=== PATIENT | female | born 1980 | race Caucasian/White ===

== ENCOUNTER → 2016-10-04 | Outpatient (CLI) | payer OTHER ==
--- NOTE | 2016-10-04 18:20 | US ---
Dear Dr. Rucker, Thank you for sending your patient, Belkis Zendejas, to us for an US and consultation to assess an atomy. As you know, the patient is a 36 y.o. G1, P0 at 18 weeks and 5 days with an EDC of 03/02/17 base d on LMP. Her is complicated by AMA. Her past medical and surgical histories are otherwise unremarkable. Genetic Screening: NIPT and AFP reassuring The patient denies any uterine contractions, vaginal bleeding, or loss of fluid. Today, she is withou t complaints. US FINDINGS: Number of fetuses: 1 Placental location: Anterior, No previa Placental Cord Insertion: Central presentation: Breech Cervix: 4.4 cm, transabdominally MVP: 6.3 cm The adnexa were evaluated. No pathology was seen. Right ovary: Normal Left ovary: Suboptimal heart rate: 143 bpm Measurements: Biparietal diameter: 45 mm, 19 weeks 5 days Head circumference: 167 mm, 19 weeks 3 days Abdominal circumference: 156 mm, 20 weeks 6 days Femur length: 31 mm, 19 weeks 5 days Humerus length: 30 mm, 19 weeks 5 days Transcerebellar diameter: 20 mm, 19 weeks 2 days Average ultrasound age: 20 weeks 0 days Estimated weight: 337 g weight percentile: 98% ANATOMY Supratentorial brain: Normal Cerebral lateral ventricle: 7 mm Posterior fossa: Normal Cisterna magna: 5 mm Nuchal fold: 3.8 mm Lip: Normal Profile: Normal Alveolar Ridge: Appears intact Spine: -- Cervical: Normal -- Thoracic: Normal -- Lumbar: Normal -- Sacral: Normal Heart: -- 4 Chamber: Normal -- Intraventricular septum: Appears intact by Color and Spectral US -- Right Outflow Tract: Normal -- Left Outflow Tract: Normal -- 3 Vessel View: Normal -- Aortic Arch: Normal -- Ductal Arch: Normal Diaphragm: Appears intact Stomach: Normal Abdominal Umbilical Cord Insertion: Normal Right kidney: Normal Left kidney: Normal Bladder: Normal Number of cord vessels: 3 Upper extremities: -- Right Arm: Normal -- Right Hand: Normal -- Left Arm: Normal -- Left Hand: Normal Lower extremities: -- Right Leg: Normal -- Right Foot: Normal, no club foot -- Left Leg: Normal -- Left Foot: Limited, no obvious club foot IMPRESSION: 1. Anatomy: The fetus measures appropriate for gestational age, measuring a normal weight and percen tile. Visualization of the fetus today reveals no overt structural anomalies. There is evidence of no rmal amniotic fluid, and movement was seen during the examination. - Further US assessment is left to your clinical discretion 2. Genetic Screening: This patient has had reassuring NIPT results this . Today, no markers of aneuploidy were seen. While her screening and US results are reassuring, we reviewed that fe leyla aneuploidy can only be definitively excluded with diagnostic testing via amniocentesis. After thi s discussion, the patient does not wish to proceed with invasive testing at this time. Thank you again for sending this patient to see us today. Approximately 12 minutes of a total visit t isaiah of 15 minutes were spent with this patient today in direct face to face counseling regarding radha gimenez's US findings and the above recommendations. Please feel free to contact me with any questions at . Mary Ann Kraft MD Maternal- Medicine
--- NOTE | 2016-10-05 09:20 | US ---
Complete Obstetric Ultrasound History: 36-year-old with estimated gestational age of 18 weeks 5 days and EDC of March 02, 2017. Comparison: None available. Findings: Number: 1 Presentation: Breech Placental location: Anterior. No previa. Cervix: Closed, measuring 4.4 cm transabdominally Maximum vertical pocket: 6.3 cm There is a 4.9 x 6.0 x 7.2 cm exophytic subserosal right uterine fibroid. The right ovary is normal. The left ovary is not visible. Biometry: Biparietal diameter: 45 mm 19 weeks, 5 days Head circumference: 167 mm 19 weeks, 3 days Abdominal circumference: 156 mm 20 weeks, 6 days Femur length: 31 mm 19 weeks, 5 days Humerus length: 30 mm 19 weeks, 5 days Transcerebellar diameter: 20 mm 19 weeks, 2 days Average ultrasound age: 20 weeks, 0 days EDC based on today's average ultrasound age: February 21, 2017 Estimated weight is 337 gms +/- 49 gms. The estimated weight percentile is 98% based on p revious dating. ANATOMY SURVEY: Supratentorial brain: Normal Posterior fossa: Normal Spine: Normal Nose and lips: Normal Heart: Four chamber heart with heart rate of 143 . The outflow tracts are normal. Stomach: Normal Umbilical cord insertion: Normal Kidneys: Normal Bladder: Normal Number of cord vessels: Three Upper extremities: Normal Lower extremities: Suboptimal visualization of the foot with no overt abnormality Impression: 1. Living single intrauterine with size concordant with dates. EFW is 98%. This could be c onstitutional but is indeterminate. 2. Unremarkable anatomy. Please see separate dictation for consultation performed by Mary Ann Kraft MD, the [facility].
== END ==
LOC: FIMAGING 07:57
PROVIDERS: ATTEND Obstetrics & Gynecology
DX: O09.512 Supervision of elderly primigravida, second trimester (principal); Z3A.18 18 weeks gestation of pregnancy

== ENCOUNTER → 2017-01-12 | Outpatient (CLI) | payer OTHER | LOC: FIMAGING 12:39 | PROVIDERS: ATTEND Obstetrics & Gynecology | DX: O36.5930 Maternal care for other known or suspected poor fetal growth, third trimester, not applicable or unspecified (principal); Z3A.33 33 weeks gestation of pregnancy ==

== ENCOUNTER → 2017-02-06 | Outpatient (CLI) | payer OTHER | LOC: FIMAGING 14:34 | PROVIDERS: ATTEND Obstetrics & Gynecology | DX: O36.63X0 Maternal care for excessive fetal growth, third trimester, not applicable or unspecified (principal); Z3A.38 38 weeks gestation of pregnancy ==

== ENCOUNTER 2017-02-08 12:40 | Inpatient (IN) | payer OTHER ==
[2017-02-08] MEDS ORDERED: LR 500 ML IV PRN (13:21)
[2017-02-08] MEDS ORDERED: OLIVE OIL 118 ML BTL MISC PRN (13:21)
[2017-02-08] MEDS ORDERED: LIDOCAINE 1% 30 ML SDV SC PRN (13:21)
[2017-02-08] MEDS ORDERED: TERBUTALINE SULFATE 1 MG/ML VIAL IV PRN (13:21)
[2017-02-08] MEDS ORDERED: EPSOM SALT 454 GM TP PRN (13:21)
[2017-02-08] MEDS ORDERED: LR 1,000 ML IV PRN (13:21)
[2017-02-08] MEDS ORDERED: OXYTOCIN/RINGERS LACTATE 1,000 ML IV PRN (13:21)
[2017-02-08] MEDS ORDERED: OXYTOCIN/RINGERS LACTATE 500 ML IV SCH (13:30)
[2017-02-08 14:15] LABS: ABSOLUTE IMMATURE GRANULOCYTES 0.11 10^3/uL (0.00-0.10); ADD DIFF? NO; ADD MORPH? NO; ADD SCAN? NO; ATYPICAL LYMPHOCYTE FLAG 20 (0-99); FRAGMENT RBC FLAG 0 (0-99); HEMATOCRIT 36.2 % (38.0-47.0); HEMOGLOBIN 12.2 g/dL (12.6-16.3); LEFT SHIFT FLG 0 (0-99); LIPEMIA HEMOLYSIS FLAG 80 (0-99); MEAN CELL HEMOGLOBIN 29.8 pg (27.9-34.1); MEAN CELL HEMOGLOBIN CONCENTR. 33.7 g/dL (32.4-36.7); MEAN CELL VOLUME 88.5 fL (81.5-99.8); MEAN PLATELET VOLUME 13.4 fL (8.7-11.7); PLATELET CLUMPS FLAG 0 (0-99); PLATELET COUNT 182 10^3/uL (150-400); RED BLOOD CELL COUNT 4.09 10^6/uL (4.18-5.33); RED CELL DISTRIBUTION WIDTH 13.1 % (11.5-15.2)
[2017-02-08] MEDS ORDERED: OLIVE OIL 118 ML BTL ONE (14:21)
[2017-02-08] MEDS ORDERED: LIDOCAINE 1% 30 ML SDV ONE (14:21)
[2017-02-08] MEDS ORDERED: MISOPROSTOL 200 MCG TAB ONE (14:22)
[2017-02-08] MEDS ORDERED: TERBUTALINE SULFATE 1 MG/ML VIAL ONE (14:22)
[2017-02-08] MEDS ORDERED: OXYTOCIN 10 UNIT/ML VIAL ONE (14:22)
--- NOTE | 2017-02-08 14:26 | GHP ---
[f rep st] HISTORY AND PHYSICAL DATE OF ADMISSION: 02/08/2017 CHIEF COMPLAINT: Leakage of fluid. HISTORY OF PRESENT ILLNESS: The patient is a 36-year-old, G1, P0, at 36 weeks 6 days based on last menstrual period and 9 week ultrasound, who presents with leaking fluid since 0600. She states that she woke up, and she was wet. She then put on a pad and continued to gush large amounts of clear fluid, so much so that she even needed to place a diaper. She initially was not yanci, however she recently started having some mild nonpainful contractions about every 6 minutes. She has felt some decreased movement since the bag of water broke. She denies any vaginal bleeding. Her has been complicated by advanced maternal age, and she has had normal cell free DNA and anatomy ultrasound. Also, recently she began complaining of shortness of breath at bedtime and has been evaluated by cardiology, and had a normal electrocardiogram. She was also seen by pulmonology and was scheduled to have an evaluation for sleep apnea today. Her has also been complicated by macrosomia, with normal Glucola screening x2. On recent ultrasound 2 days ago, her fetus was measuring 4026 g, in the 98th percentile, and was noted to be vertex with normal fluid. She has gained 40 pounds this . OB LABS: Notable for blood type O positive, antibody screen negative, Pap smear negative. Varicella nonimmune, rubella immune, RPR nonreactive. Urine culture negative. Hep B surface antigen negative, HIV negative, gonorrhea and chlamydia negative. She did have an elevated 1 hour Glucola in the 3rd trimester, which was then followed by a normal 3 hour Glucola. GBS negative. PAST MEDICAL HISTORY: Migraines. PAST SURGICAL HISTORY: None. SOCIAL HISTORY: to Julio. Denies alcohol, drugs or tobacco use. FAMILY HISTORY: Mother with a history of uterine cancer. MEDICATIONS: vitamin, calcium, loratadine 10 mg p.r.n. REVIEW OF SYSTEMS: Negative, except as stated in HPI. OBJECTIVE: VITAL SIGNS: Initial blood pressure 143/85, pulse 80, temp 37.0, repeat blood pressure 128/84. GENERAL: Alert, awake in no acute distress. Respirations nonlabored. CARDIOVASCULAR: Regular rate and rhythm. ABDOMEN: Abdomen is gravid, soft, nontender, consistent with term gestation. EXTREMITIES : No edema. VAGINAL: Sterile vaginal exam, cervix posterior, 2 cm dilated, 50 % effaced, -3 station. Vertex presentation. Noted to have leakage of clear fluid on exam, consistent with rupture. heart rate tracing baseline 130 beats per minute. Moderate variability, positive accelerations, no decelerations. Tocometer shows intermittent contractions. Laboratories are pending. ASSESSMENT AND PLAN: The patient is a healthy 36-year-old, G1, P0, at 36 weeks 6 days by last menstrual period and 9 week ultrasound, who presents with premature rupture of membranes. She is GBS negative. She is not currently in active labor. status is currently reassuring. As the bag of water is broken, to minimize the risk of chorioamnionitis, I recommend we proceed with augmentation of labor with Pitocin. We discussed the risks and benefits, and she and her agree with this plan. We will continue with continuous monitoring. Reviewed the risks of cephalopelvic dystocia, given the large size of her fetus. However, based on ultrasound yesterday, would not recommend delivery at this time and recommend to proceed with trial of labor, which is also her preference. As the bag of water is broken and she has passed 34 weeks, I do not recommend delaying delivery for administration of corticosteroids. We discussed what to expect at time of delivery for her gestational age . /[id number]/MODL MTDD
[2017-02-08 15:34] LABS: ALANINE AMINOTRANSFERASE 32 IU/L (9-52); ASPARTATE AMINOTRANSFERASE 37 IU/L (14-46); BILIRUBIN,TOTAL 0.6 mg/dL (0.1-1.4); BILIRUBIN-CONJUGATED 0.4 mg/dL (0.0-0.5); BILIRUBIN-UNCONJUGATED 0.2 mg/dL (0.0-1.1); CREATININE 0.8 mg/dL (0.6-1.0); GLOMERULAR FILTRATION RATE > 60; LACTATE DEHYDROGENASE 706 IU/L (313-618); URIC ACID 6.4 mg/dL (2.5-6.8)
--- NOTE | 2017-02-08 17:41 | OBPROG ---
OBG Progress Note Assessment/Plan: Assessment: 36w6d, PPROM status reassuring GBS neg Plan: Continue pitocin SVE when more uncomfortable Will let peds know about slightly dilated kidney on recent growth US 02/08/17 17:40 Subjective: Starting to feel contractions a little more. Ongoing leaking Objective: 02/08/17 14:00 02/08/17 14:30 Patient ABO/Rh O POSITIVE 02/08/17 14:00 Uric Acid 6.4 mg/dL (2.5-6.8) 02/08/17 14:30 Total Bilirubin 0.6 mg/dL (0.1-1.4) 02/08/17 14:30 Conjugated Bilirubin 0.4 mg/dL (0.0-0.5) 02/08/17 14:30 Unconjugated Bilirubin 0.2 mg/dL (0.0-1.1) 02/08/17 14:30 AST 37 IU/L (14-46) 02/08/17 14:30 ALT 32 IU/L (9-52) 02/08/17 14:30 Lactate Dehydrogenase 706 IU/L (313-618) H 02/08/17 14:30 Gen: NAD Pelvic deferred Current Contraction Pattern: Irregular FHR (bpm): 130 FHR Pattern Variability: Moderate FHR Category: 1 Membranes: SROM Amniotic Fluid Color: Clear ICD10 Worksheet Patient Problems: Problems Problem Status Onset premature rupture of membranes (PPROM) with unknown onset of labor Acute - ICD10 Problem Qualifiers (1) premature rupture of membranes (PPROM) with unknown onset of labor
--- NOTE | 2017-02-08 20:24 | OBPROG ---
OBG Progress Note Assessment/Plan: Assessment: 36w6d, PPROM status reassuring GBS neg Plan: Continue pitocin Pain management as requested by pt 02/08/17 17:40 02/08/17 20:23 Subjective: Plan of care reviewed with YUKI Correa and FHR tracing reviewed. Ctx every 3-4 min , mild to mod. Pt just starting to get slightly more uncomfortable, getting in tub. SVE /-2 per RN Objective: 02/08/17 14:00 02/08/17 14:30 Patient ABO/Rh O POSITIVE 02/08/17 14:00 Uric Acid 6.4 mg/dL (2.5-6.8) 02/08/17 14:30 Total Bilirubin 0.6 mg/dL (0.1-1.4) 02/08/17 14:30 Conjugated Bilirubin 0.4 mg/dL (0.0-0.5) 02/08/17 14:30 Unconjugated Bilirubin 0.2 mg/dL (0.0-1.1) 02/08/17 14:30 AST 37 IU/L (14-46) 02/08/17 14:30 ALT 32 IU/L (9-52) 02/08/17 14:30 Lactate Dehydrogenase 706 IU/L (313-618) H 02/08/17 14:30 ICD10 Worksheet Patient Problems: Problems Problem Status Onset premature rupture of membranes (PPROM) with unknown onset of labor Acute - ICD10 Problem Qualifiers (1) premature rupture of membranes (PPROM) with unknown onset of labor
[2017-02-08] MEDS ORDERED: fentaNYL 2MCG/ML/BUP 0.1% RTU 100 ML BAG EP ONE ×2 (22:03)
[2017-02-08] MEDS ORDERED: METOCLOPRAMIDE 10 MG/2 ML VIAL IVP PRN (22:37)
[2017-02-08] MEDS ORDERED: NALOXONE HCL 0.4 MG/ML INJ IVP PRN (22:37)
[2017-02-08] MEDS ORDERED: PHENYLEPHRINE HCL 100 MCG/ML SYR IVP PRN (22:37)
[2017-02-08] MEDS ORDERED: fentaNYL 2MCG/ML/BUP 0.1% RTU 100 ML EP SCH (23:00)
[2017-02-08] MEDS ORDERED: LR 500 ML IV SCH (23:00)
--- NOTE | 2017-02-08 23:49 | OBPROG ---
OBG Progress Note Assessment/Plan: Assessment: 36w6d, PPROM Intermittent late decels after epidural--position change, fluids O2. Will decrease pitocin if recurrent or do not resolve with conservative measures. Overall reassuring with mod beena and accels. GBS neg Plan: Continue AOL Subjective: Comfortable with epidural per RN. Now 4-5 cm per RN. Pit at 22 mu/min Objective: 02/08/17 14:00 02/08/17 14:30 Patient ABO/Rh O POSITIVE 02/08/17 14:00 Uric Acid 6.4 mg/dL (2.5-6.8) 02/08/17 14:30 Total Bilirubin 0.6 mg/dL (0.1-1.4) 02/08/17 14:30 Conjugated Bilirubin 0.4 mg/dL (0.0-0.5) 02/08/17 14:30 Unconjugated Bilirubin 0.2 mg/dL (0.0-1.1) 02/08/17 14:30 AST 37 IU/L (14-46) 02/08/17 14:30 ALT 32 IU/L (9-52) 02/08/17 14:30 Lactate Dehydrogenase 706 IU/L (313-618) H 02/08/17 14:30 FHR (bpm): 135 FHR Pattern Variability: Moderate FHR Category: 2 Membranes: SROM ICD10 Worksheet Patient Problems: Problems Problem Status Onset premature rupture of membranes (PPROM) with unknown onset of labor Acute - ICD10 Problem Qualifiers (1) premature rupture of membranes (PPROM) with unknown onset of labor
[2017-02-09] MEDS ORDERED: LIDOCAINE 1% 30 ML SDV ONE (02:24)
--- NOTE | 2017-02-09 03:01 | OBPROG ---
OBG Progress Note Assessment/Plan: Assessment: 37w0d, PPROM Late decels improved after decreasing pitocin, however, now pt now just had spont 4 min decel to 90s, resolved with position change. SVE 9 cm dilated, baby still high, in OP presentation. Pit turned off during decel, expect was due to sudden dilation GBS neg No signs of chorioamnionitis (no /maternal tachy or temp) Plan: Restart pitocin at half prior amount (6 mu/min) Peanut ball/position changes for OP presentation 02/09/17 03:01 02/09/17 03:01 02/09/17 03:02 Subjective: comfortable Objective: 02/08/17 14:00 02/08/17 14:30 Patient ABO/Rh O POSITIVE 02/08/17 14:00 Uric Acid 6.4 mg/dL (2.5-6.8) 02/08/17 14:30 Total Bilirubin 0.6 mg/dL (0.1-1.4) 02/08/17 14:30 Conjugated Bilirubin 0.4 mg/dL (0.0-0.5) 02/08/17 14:30 Unconjugated Bilirubin 0.2 mg/dL (0.0-1.1) 02/08/17 14:30 AST 37 IU/L (14-46) 02/08/17 14:30 ALT 32 IU/L (9-52) 02/08/17 14:30 Lactate Dehydrogenase 706 IU/L (313-618) H 02/08/17 14:30 Resting, NAD - SVE Dilation (cm): 9 Effacement (%): 90 Station: -1 Current Contraction Pattern: Regular FHR (bpm): 135 FHR Pattern Variability: Moderate FHR Category: 2 Membranes: SROM Amniotic Fluid Color: Clear ICD10 Worksheet Patient Problems: Problems Problem Status Onset premature rupture of membranes (PPROM) with unknown onset of labor Acute - ICD10 Problem Qualifiers (1) premature rupture of membranes (PPROM) with unknown onset of labor
[2017-02-09] MEDS: ONDANSETRON 4 MG/2 ML VIAL IVP PRN ×2 (03:15→15:02)
--- NOTE | 2017-02-09 07:03 | OBPROG ---
OBG Progress Note Assessment/Plan: Assessment: 37w0d, PPROM yesterday at 36w6d GBS neg No signs of chorioamnionitis (no /maternal tachy or temp) Fully dilated status reassuring ROP presentation. Consider rotation if baby doesn't rotate spontaneously while pushing or she is not making progress pushing Plan: Start pushing 02/09/17 07:02 Subjective: Comfortable. Slight pressure, can just sense contractions Objective: 02/08/17 14:00 02/08/17 14:30 Patient ABO/Rh O POSITIVE 02/08/17 14:00 Uric Acid 6.4 mg/dL (2.5-6.8) 02/08/17 14:30 Total Bilirubin 0.6 mg/dL (0.1-1.4) 02/08/17 14:30 Conjugated Bilirubin 0.4 mg/dL (0.0-0.5) 02/08/17 14:30 Unconjugated Bilirubin 0.2 mg/dL (0.0-1.1) 02/08/17 14:30 AST 37 IU/L (14-46) 02/08/17 14:30 ALT 32 IU/L (9-52) 02/08/17 14:30 Lactate Dehydrogenase 706 IU/L (313-618) H 02/08/17 14:30 - SVE Dilation (cm): 10 Effacement (%): 100 Station: -1 Current Contraction Pattern: Regular FHR (bpm): 130 FHR Pattern Variability: Moderate FHR Category: 1 ICD10 Worksheet Patient Problems: Problems Problem Status Onset premature rupture of membranes (PPROM) with unknown onset of labor Acute - ICD10 Problem Qualifiers (1) premature rupture of membranes (PPROM) with unknown onset of labor
--- NOTE | 2017-02-09 08:02 | OBPROG ---
OBG Progress Note Assessment/Plan: Assessment: 37w0d, PPROM yesterday at 36w6d GBS neg No signs of chorioamnionitis (no /maternal tachy or temp) Fully dilated status reassuring ROP presentation. Pushing x 1.25 hours with minimal descent: pt not pushing very effectively and feels like this is more the issue vs CPD or position Plan: Pt status discussed and signed out care to Dr. Rucker Will consider turning down epidural slightly and trial labor down x 1 hour. Plan to discuss this recommendation with Dr. Craig 02/09/17 07:02 02/09/17 08:00 Subjective: Pushing. Can feel onset of contractions, but feels like pelvic area is still very numb Objective: 02/08/17 14:00 02/08/17 14:30 Patient ABO/Rh O POSITIVE 02/08/17 14:00 Uric Acid 6.4 mg/dL (2.5-6.8) 02/08/17 14:30 Total Bilirubin 0.6 mg/dL (0.1-1.4) 02/08/17 14:30 Conjugated Bilirubin 0.4 mg/dL (0.0-0.5) 02/08/17 14:30 Unconjugated Bilirubin 0.2 mg/dL (0.0-1.1) 02/08/17 14:30 AST 37 IU/L (14-46) 02/08/17 14:30 ALT 32 IU/L (9-52) 02/08/17 14:30 Lactate Dehydrogenase 706 IU/L (313-618) H 02/08/17 14:30 - SVE Dilation (cm): 10 Effacement (%): 100 Station: +1 Current Contraction Pattern: Regular FHR (bpm): 140 FHR Pattern Variability: Moderate FHR Category: 1 ICD10 Worksheet Patient Problems: Problems Problem Status Onset premature rupture of membranes (PPROM) with unknown onset of labor Acute - ICD10 Problem Qualifiers (1) premature rupture of membranes (PPROM) with unknown onset of labor
--- NOTE | 2017-02-09 08:37 | OBPROG ---
OBG Progress Note Assessment/Plan: Assessment: 36 y/o at 37+0 weeks EGA admitted for PROM now on pitocin - Plan: 1) Labor: Pt pushed for an hour, but she had a dense KEI and did not make much progress. Now, she reports feeling much more with her contractions, and she is pushing with good efforts. With pushing, I see movement of the head. Discussed how the baby is OP, slightly asynclitic. I tried to manually rotate the baby not to be asynclitic, and she is pushing with good efforts. Will reevaluate hourly. 2) status reassuring over all 3) Pain: well controlled w/ KEI 4) GBS negative 02/09/17 08:44 Subjective: Pt pushing. She reports feeling more pressure with pushing now. Objective: 02/08/17 14:00 02/08/17 14:30 Patient ABO/Rh O POSITIVE 02/08/17 14:00 Uric Acid 6.4 mg/dL (2.5-6.8) 02/08/17 14:30 Total Bilirubin 0.6 mg/dL (0.1-1.4) 02/08/17 14:30 Conjugated Bilirubin 0.4 mg/dL (0.0-0.5) 02/08/17 14:30 Unconjugated Bilirubin 0.2 mg/dL (0.0-1.1) 02/08/17 14:30 AST 37 IU/L (14-46) 02/08/17 14:30 ALT 32 IU/L (9-52) 02/08/17 14:30 Lactate Dehydrogenase 706 IU/L (313-618) H 02/08/17 14:30 - SVE Dilation (cm): 10 Effacement (%): 100 Station: +1 Current Contraction Pattern: Regular FHR (bpm): 140 FHR Pattern Variability: Moderate FHR Category: 2 (occasional variable just started with pushing, good accels present) Amniotic Fluid Color: Clear ICD10 Worksheet Patient Problems: Problems Problem Status Onset premature rupture of membranes (PPROM) with unknown onset of labor Acute
--- NOTE | 2017-02-09 09:12 | OBPROG ---
OBG Progress Note Assessment/Plan: Assessment: 36 y/o at 37+0 weeks EGA admitted for PROM with arrest of descent - Plan: 1) Labor: Pt has been pushing for 2.5 hrs, no descent noted at all despite improved maternal pushing efforts and a successful internal rotation of the head to OA which quickly returned on it's own to OP after future pushing with return of the asyclitism as well. I discussed that this suggests CPD with a possible nuchal cord or other cause holding the baby in this position. Discussed she can keep pushing if desired, but I am concerned and offered a primary C/S at this time. She agrees to proceed. All r/b/i/a reviewed to include risks of infection, bleeding, damage to surrounding structures and organs, blood transfusion and hysterectomy. Consents signed. All questions answered. 2) status reassuring over all 3) Pain: well controlled w/ KEI 4) GBS negative 02/09/17 17:45 Subjective: Pt tired. Objective: 02/08/17 14:00 02/08/17 14:30 Patient ABO/Rh O POSITIVE 02/08/17 14:00 Uric Acid 6.4 mg/dL (2.5-6.8) 02/08/17 14:30 Total Bilirubin 0.6 mg/dL (0.1-1.4) 02/08/17 14:30 Conjugated Bilirubin 0.4 mg/dL (0.0-0.5) 02/08/17 14:30 Unconjugated Bilirubin 0.2 mg/dL (0.0-1.1) 02/08/17 14:30 AST 37 IU/L (14-46) 02/08/17 14:30 ALT 32 IU/L (9-52) 02/08/17 14:30 Lactate Dehydrogenase 706 IU/L (313-618) H 02/08/17 14:30 - SVE Dilation (cm): 10 Effacement (%): 100 Station: +1 Current Contraction Pattern: Regular FHR (bpm): 140 FHR Pattern Variability: Moderate FHR Category: 1 ICD10 Worksheet Patient Problems: Problems Problem Status Onset premature rupture of membranes (PPROM) with unknown onset of labor Acute
[2017-02-09] MEDS ORDERED: ceFAZolin 2 GM/DEXTROSE 100 ML IV ONE (09:20)
[2017-02-09] MEDS ORDERED: LR 500 ML IV ONE (09:20)
[2017-02-09] MEDS ORDERED: CITRIC ACID/SODIUM CITRATE 30 ML UDCUP PO ONE (09:20)
[2017-02-09] MEDS ORDERED: LR 1,000 ML IV SCH (09:30)
[2017-02-09] MEDS ORDERED: fentaNYL 100 MCG/2 ML INJ ONE (09:39)
[2017-02-09] MEDS ORDERED: LIDO/EPI 2% **for epidural** 20 ML SDV ONE (09:40)
[2017-02-09] MEDS ORDERED: SIMETHICONE 80 MG TAB CHEW PO PRN (10:04)
[2017-02-09] MEDS ORDERED: ACETAMINOPHEN 325 MG TAB PO PRN (10:04)
[2017-02-09] MEDS ORDERED: morphINE PF 5 MG/10 ML INJ ONE (10:17)
[2017-02-09] MEDS ORDERED: OXYTOCIN 100 UNITS/10 ML VIAL ONE (10:18)
[2017-02-09] MEDS ORDERED: DEXAMETHASONE 4 MG/ML VIAL ONE ×2 (10:18)
[2017-02-09] MEDS ORDERED: ONDANSETRON 4 MG/2 ML VIAL ONE ×2 (10:22)
[2017-02-09] MEDS ORDERED: KETOROLAC 30 MG/1 ML SDV ONE (11:10)
[2017-02-09] MEDS: KETOROLAC 30 MG/1 ML SDV IVP PRN ×3 (11:14→23:22)
[2017-02-09] MEDS ORDERED: MEPERIDINE 25 MG/ML SYR IVP PRN (12:11)
--- NOTE | 2017-02-09 12:15 | POSTANESTH ---
Post Anesthetic Evaluation Cardiovascular Status: Normal, Stable Respiratory Status: Normal, Stable, Similar to Pre-op Cond. Level of Consciousness/Mental Status: Can Participate in Eval, Alert and Oriented (Epidural dosed for C Section, BP treated, to OR, comfortable for surgery, to PACU, no pain or nausea.) Pain Control: Adequate, Prn Tx Ordered Nausea/Vomiting Control: Adequate, Prn Tx Ordered Complications Possibly Related to Anesthesia: None Noted
[2017-02-09] MEDS ORDERED: SCOPOLAMINE HYDROBROMIDE 1.5 MG PATCH TD ONE ×2 (15:55→16:02)
--- NOTE | 2017-02-09 17:49 | OBPROC ---
- Delivery Pre-op Diagnoses: 1) IUP at 37+0 weeks, 2) Arrest of descent, 3) Malposition Post-op Diagnoses: bruce Procedure: Primary, Low Transverse Surgeon: Nano Rucker [employer] Teacher: Adelia Montenegro Anesthesiologist: Amish Craig Anesthesia: Epidural Complications: None Findings: Baby in ROP position, asynclitic w/ nuchal cord IV Fluid (ml): 2,000 EBL: 800 Drains: Other (Specify) (borrego) - Info A Delivery Date: 02/09/17 Delivery Time: 10:18 Sex of Infant: Male [place] Weight (gm): 3688 g Score (1 Min): 9 Score (5 Min): 9
[2017-02-10] MEDS: KETOROLAC 30 MG/1 ML SDV IVP PRN (05:37)
[2017-02-10 06:54] LABS: ABSOLUTE IMMATURE GRANULOCYTES 0.17 10^3/uL (0.00-0.10); ADD DIFF? NO; ADD MORPH? NO; ADD SCAN? NO; ATYPICAL LYMPHOCYTE FLAG 0 (0-99); FRAGMENT RBC FLAG 0 (0-99); HEMATOCRIT 27.9 % (38.0-47.0); HEMOGLOBIN 9.5 g/dL (12.6-16.3); LEFT SHIFT FLG 20 (0-99); LIPEMIA HEMOLYSIS FLAG 90 (0-99); MEAN CELL HEMOGLOBIN 30.2 pg (27.9-34.1); MEAN CELL HEMOGLOBIN CONCENTR. 34.1 g/dL (32.4-36.7); MEAN CELL VOLUME 88.6 fL (81.5-99.8); MEAN PLATELET VOLUME 13.5 fL (8.7-11.7); PLATELET CLUMPS FLAG 20 (0-99); PLATELET COUNT 135 10^3/uL (150-400); RED BLOOD CELL COUNT 3.15 10^6/uL (4.18-5.33); RED CELL DISTRIBUTION WIDTH 13.3 % (11.5-15.2)
[2017-02-10 07:01] LABS: ALANINE AMINOTRANSFERASE 29 IU/L (9-52); ALBUMIN 2.1 g/dL (3.5-5.0); ALKALINE PHOSPHATASE 99 IU/L (38-126); ANION GAP 3 mEq/L (8-16); ASPARTATE AMINOTRANSFERASE 29 IU/L (14-46); BILIRUBIN,TOTAL 0.5 mg/dL (0.1-1.4); CALCIUM 7.8 mg/dL (8.5-10.4); CARBON DIOXIDE 22 mEq/l (22-31); CHLORIDE 103 mEq/L (97-110); CREATININE 1.1 mg/dL (0.6-1.0); GLOMERULAR FILTRATION RATE 57; GLUCOSE 93 mg/dL (70-100); POTASSIUM 4.1 mEq/L (3.5-5.2); SODIUM 128 mEq/L (134-144); TOTAL PROTEIN 4.5 g/dL (6.3-8.2)
--- NOTE | 2017-02-10 07:48 | SOAPPROG ---
SOAP Progress Note Assessment/Plan: Assessment: 36 y.o. female s/p primary C/S POD #1. Recovering well with good pain control. . Plan: Routine / postop care. consult. Discontinue IV hep lock, bandage, borrego and encourage ambulation 02/10/17 07:43 Subjective: Reports feeling well with good pain control. Eating and drinking well without nausea or vomiting. Will encourage ambulation. with assistance. Incision CDI. Good support with appropriate mood. Objective: Vital Signs Temp Pulse Resp BP Pulse Ox 36.6 C 75 16 101/62 92 02/10/17 06:00 02/10/17 06:00 02/10/17 06:00 02/10/17 06:00 02/10/17 06:00 Laboratory Results 02/10/17 06:15 02/10/17 06:15 02/09/17 02/10/17 02/11/17 05:59 05:59 05:59 Intake Total 7340 Output Total 3405 Balance 3935 - Time Spent With Patient Time Spent With Patient: 20 minutes - Pending Discharge Pending Discharge Within 24 Hours: No Pending Discharge Within 48 Hours: Yes Pending Discharge Date: 02/12/17 Pending Discharge Time: 11:00 Physical Exam - Physical Exam General Appearance: WD/WN, alert, no apparent distress EENT: normal ENT inspection Neck: non-tender, full range of motion, normal inspection Respiratory: lungs clear, normal breath sounds Cardiac/Chest: regular rate, rhythm Abdomen: non-tender, soft Pelvic Exam: normal external exam Rectal: deferred Back: Normal inspection Skin: normal color, warm/dry Lymphatic: no adenopathy Extremities: normal range of motion, non-tender Neuro/Psych: alert, normal mood/affect, oriented x 3 ICD10 Worksheet Patient Problems: Problems Problem Status Onset premature rupture of membranes (PPROM) with unknown onset of labor Acute
[2017-02-10] MEDS: IRON POLYSAC/IRON HEME 28 MG TAB PO SCH ×2 (10:21→23:31)
[2017-02-10] MEDS: DOCUSATE SODIUM 100 MG CAP PO PRN ×2 (10:21→23:31)
[2017-02-10] MEDS: HYDROCODONE/APAP 5/325 TAB PO PRN ×3 (11:08→19:44)
[2017-02-10] MEDS: IBUPROFEN 600 MG TAB PO PRN ×3 (11:42→23:30)
[2017-02-10] MEDS ORDERED: PATCH REMOVAL 1 EA PATCH TD ONE (16:02)
[2017-02-10 19:29] LABS: % IMMATURE GRANULYOCYTES 1.3 % (0.0-1.1); ABSOLUTE IMMATURE GRANULOCYTES 0.22 10^3/uL (0.00-0.10); ADD DIFF? NO; ADD MORPH? NO; ADD SCAN? NO; ATYPICAL LYMPHOCYTE FLAG 0 (0-99); FRAGMENT RBC FLAG 10 (0-99); HEMATOCRIT 28.9 % (38.0-47.0); HEMOGLOBIN 9.9 g/dL (12.6-16.3); LEFT SHIFT FLG 20 (0-99); LIPEMIA HEMOLYSIS FLAG 90 (0-99); MEAN CELL HEMOGLOBIN 30.3 pg (27.9-34.1); MEAN CELL HEMOGLOBIN CONCENTR. 34.3 g/dL (32.4-36.7); MEAN CELL VOLUME 88.4 fL (81.5-99.8); MEAN PLATELET VOLUME 12.7 fL (8.7-11.7); PLATELET CLUMPS FLAG 10 (0-99); PLATELET COUNT 163 10^3/uL (150-400); RED BLOOD CELL COUNT 3.27 10^6/uL (4.18-5.33); RED CELL DISTRIBUTION WIDTH 13.5 % (11.5-15.2)
[2017-02-10 19:36] LABS: ALANINE AMINOTRANSFERASE 28 IU/L (9-52); ALBUMIN 2.4 g/dL (3.5-5.0); ALKALINE PHOSPHATASE 124 IU/L (38-126); ANION GAP 3 mEq/L (8-16); ASPARTATE AMINOTRANSFERASE 29 IU/L (14-46); BILIRUBIN,TOTAL 0.3 mg/dL (0.1-1.4); CALCIUM 8.2 mg/dL (8.5-10.4); CARBON DIOXIDE 24 mEq/l (22-31); CHLORIDE 107 mEq/L (97-110); CREATININE 0.9 mg/dL (0.6-1.0); GLOMERULAR FILTRATION RATE > 60; GLUCOSE 89 mg/dL (70-100); POTASSIUM 4.2 mEq/L (3.5-5.2); SODIUM 134 mEq/L (134-144)
[2017-02-10] MEDS ORDERED: CEPACOL LOZENGE PO PRN (23:54)
--- NOTE | 2017-02-11 02:19 | GOP ---
[f rep st] OPERATIVE REPORT DATE OF OPERATION: 02/09/2017 SURGEON: Nano Rucker MD TREE KILLER: ANNI Philip ANESTHESIA: Epidural. PREOPERATIVE DIAGNOSIS: 1. Intrauterine at 37 weeks. 2. Premature rupture of membranes. 3. Arrest of descent. 4. Malposition with baby in occiput posterior presentation. POSTOPERATIVE DIAGNOSIS: 1. Intrauterine at 37 weeks. 2. Premature rupture of membranes. 3. Arrest of descent. 4. Malposition with baby in occiput posterior presentation. PROCEDURE PERFORMED: Primary low transverse section. FINDINGS: 1. Delivered a male infant, weighing 3688 g with Apgars of 9 and 9 at 10:18 a.m in right occiput posterior position with a nuchal cord. 1. Normal uterus, fallopian tubes, and ovaries other than some exophytic fibroids, with the largest fibroid arising from the right side of the uterus. SPECIMENS: None. ESTIMATED BLOOD LOSS: 800 cc. INDICATIONS: The patient is a 36-year-old, 1, para 0, female who presented with premature rupture of membranes at 36 weeks and 6 days' gestation. She progressed in labor with Pitocin for induction to complete dilation and complete effacement, and 0 to +1 station. She pushed with no descent noted despite multiple maneuvers to try to rotate the baby from occiput posterior position to occiput anterior position, and with adequate pushes the baby remained asynclitic and malpositioned. The recommendation was for section. She agreed to proceed. DESCRIPTION OF PROCEDURE: The patient was taken to the operating room, where epidural anesthesia was found be adequate. Patient was prepared and draped in normal sterile fashion in dorsal supine position with a left tilt. After confirmation of adequate anesthesia and administration of Ancef 2 g IV, a low transverse skin incision was made and carried down to the level of the fascia using the scalpel, and Bovie was used for hemostasis. The fascia was incised in the midline, extended laterally bilaterally with the Forbes scissors. The fascia was dissected off the rectus muscles superiorly and inferiorly with the Bovie. The peritoneal cavity was entered bluntly and extended superiorly and inferiorly in layers using the Bovie. A bladder blade was placed. An incision was made in the vesicouterine peritoneum and the bladder was dissected away from the lower uterine segment. Of note, there seemed to be some mild adhesions between this dissection and the midline, which was eventually taken down easily with digital dissection. A low transverse uterine incision was then made and extended digitally. The baby was delivered atraumatically in the vertex presentation with a loose nuchal cord noted that was reduced during delivery. The baby was bulb suctioned. The cord was doubly clamped and cut. The baby was handed to the waiting nurse practitioner. Cord blood was obtained. The placenta was then delivered with uterine massage. The uterus was exteriorized on the maternal abdomen and wiped with dry lap sponges to remove all residual membranes. The uterine incision was closed with a running lock stitch of 0 Monocryl. There was a small extension noted on the left side which was closed with this initial layer of closure. A 2nd layer of closure was completed using the same suture. Hemostasis was assured. The uterine tone was excellent. The posterior cul-de-sac was irrigated with copious amounts of normal saline and noted to be clear. The uterus was placed back in maternal abdomen. The gutters were wiped with moist lap sponges bilaterally. The uterine incision was reexamined and hemostasis was assured. The rectus muscle surfaces and fascial surfaces were examined closely and hemostasis assured with the use of the Bovie. The fascia was then closed with a running nonlocked stitch of #1 PDS. The subcutaneous tissue was irrigated with copious amounts of normal saline and hemostasis was obtained with the use of the Bovie. The subcutaneous tissue was reapproximated with interrupted stitches of 2-0 Vicryl. The skin was closed with a subcuticular stitch of 4-0 Monocryl. Steri-Strips and a bandage dressing was placed. A vaginal Crede exam was performed and small amount of blood and clot removed from the vaginal vault. The uterine tone was excellent. All sponge, lap, and needle counts were correct x2. The patient was transferred to the PACU in stable and good condition. COMPLICATIONS: None. DRAINS: Pride to gravity. IV FLUIDS: 2000 cc. URINE OUTPUT: 100 cc. /[id number]/MODL MTDD
[2017-02-11] MEDS: HYDROCODONE/APAP 5/325 TAB PO PRN ×2 (04:29→08:33)
[2017-02-11] MEDS: IBUPROFEN 600 MG TAB PO PRN ×3 (07:06→19:15)
[2017-02-11] MEDS: IRON POLYSAC/IRON HEME 28 MG TAB PO SCH ×2 (08:32→21:16)
[2017-02-11] MEDS: DOCUSATE SODIUM 100 MG CAP PO PRN (08:32)
[2017-02-11] MEDS ORDERED: MAGNESIUM HYDROXIDE 30 ML UDCUP PO PRN (11:39)
[2017-02-11] MEDS ORDERED: BISACODYL 10 MG SUPP PR PRN (11:39)
[2017-02-11] MEDS ORDERED: POLYETHYLENE GLYCOL 3350 17 GM PKT PO PRN (11:39)
[2017-02-11] MEDS ORDERED: LACTULOSE 20 GM/30 ML UDCUP PO PRN (11:39)
--- NOTE | 2017-02-11 12:10 | OBPROG ---
OBG Progress Note Assessment/Plan: Assessment: 36 y/o POD#2 s/p primary LTCS for arrest of descent - hemodynamically stable Plan: 1) Continue routine PP care 2) Start bowel protocol 3) RH+, RI 4) Anticipate discharge home tomorrow or Monday02/11/17 12:15 Subjective: Pt is ambulating, tolerating regular diet, voiding spontaneously, passing flatus. Pain seems appropriate, but she does report having stabbing pain w/ ambulation. Breast feeding progressing. Objective: 02/10/17 19:15 02/10/17 19:15 Patient ABO/Rh O POSITIVE 02/08/17 14:00 Uric Acid 6.4 mg/dL (2.5-6.8) 02/08/17 14:30 Total Bilirubin 0.3 mg/dL (0.1-1.4) 02/10/17 19:15 Conjugated Bilirubin 0.4 mg/dL (0.0-0.5) 02/08/17 14:30 Unconjugated Bilirubin 0.2 mg/dL (0.0-1.1) 02/08/17 14:30 AST 29 IU/L (14-46) 02/10/17 19:15 ALT 28 IU/L (9-52) 02/10/17 19:15 Lactate Dehydrogenase 706 IU/L (313-618) H 02/08/17 14:30 Temp Pulse Resp BP Pulse Ox 37.9 C 81 16 115/67 92 02/10/17 20:10 02/10/17 20:10 02/10/17 20:10 02/10/17 20:10 02/10/17 20:10 - Physical Exam General Appearance: WD/WN, alert, no apparent distress Respiratory: lungs clear Cardiac/Chest: regular rate, rhythm Abdomen: normal bowel sounds, non-tender, soft, incision (c/d/i, steri strips intact, fundus firm) ICD10 Worksheet Patient Problems: Problems Problem Status Onset delivery delivered Acute premature rupture of membranes (PPROM) with unknown onset of labor Acute - ICD10 Problem Qualifiers (1) delivery delivered
[2017-02-11] MEDS: OXYCODONE/APAP 5/325 TAB PO PRN ×3 (13:08→21:17)
[2017-02-11 15:09] VITALS: RESP 18
[2017-02-11] MEDS: SENNOSIDES/DOCUSATE SODIUM TAB PO SCH (21:16)
[2017-02-12] MEDS: OXYCODONE/APAP 5/325 TAB PO PRN
[2017-02-12] MEDS: IBUPROFEN 600 MG TAB PO PRN ×4 (01:11→20:43)
[2017-02-12] MEDS: SENNOSIDES/DOCUSATE SODIUM TAB PO SCH ×2 (08:04→19:33)
[2017-02-12] MEDS: IRON POLYSAC/IRON HEME 28 MG TAB PO SCH ×2 (08:04→19:32)
[2017-02-12] MEDS: HYDROCODONE/APAP 5/325 TAB PO PRN ×4 (08:06→20:44)
--- NOTE | 2017-02-12 12:57 | OBPROG ---
OBG Progress Note Assessment/Plan: Assessment: 36 y/o POD#3 s/p primary LTCS for arrest of descent - hemodynamically stable, clinically improving Plan: 1) Continue routine PP care. Pain meds switched back to norco. Continue bowel protocol. 2) Mild BP elevation this AM - mild elevation on admission; PIH labs followed; mild thrombocytopenia and elevated creatinine initially that improved to normal range. No PIH symptoms and normal reflexes. Will continue to monitor BP's x 24 hrs. Plan f/u for BP check with nurse visit in clinic in 2 -3 days after discharge. 3) RH+, RI 4) Anticipate discharge home tomorrow. Continue inpatient care. F/U with Dr Rucker in 2 weeks 02/12/17 12:57 Subjective: Pt had increased pain this AM, wanted to switch back to norco; feeling better now. Passing flatus, still no BM. Ambulating, voiding, lochia minimal, and breast feeding progressing. Still needing SIS; some nipple pain. RX for APNO written. Objective: 02/10/17 19:15 02/10/17 19:15 Patient ABO/Rh O POSITIVE 02/08/17 14:00 Uric Acid 6.4 mg/dL (2.5-6.8) 02/08/17 14:30 Total Bilirubin 0.3 mg/dL (0.1-1.4) 02/10/17 19:15 Conjugated Bilirubin 0.4 mg/dL (0.0-0.5) 02/08/17 14:30 Unconjugated Bilirubin 0.2 mg/dL (0.0-1.1) 02/08/17 14:30 AST 29 IU/L (14-46) 02/10/17 19:15 ALT 28 IU/L (9-52) 02/10/17 19:15 Lactate Dehydrogenase 706 IU/L (313-618) H 02/08/17 14:30 Temp Pulse Resp BP Pulse Ox 36.5 C 81 18 126/85 H 95 02/12/17 08:34 02/12/17 08:34 02/12/17 08:34 02/12/17 08:57 02/12/17 08:34 - Physical Exam General Appearance: WD/WN, alert, no apparent distress Respiratory: lungs clear Cardiac/Chest: regular rate, rhythm Abdomen: normal bowel sounds, soft, incision (c/d/i, steri strips intact), other (fundus firm) ICD10 Worksheet Patient Problems: Problems Problem Status Onset delivery delivered Acute premature rupture of membranes (PPROM) with unknown onset of labor Acute - ICD10 Problem Qualifiers (1) delivery delivered
[2017-02-13] MEDS: HYDROCODONE/APAP 5/325 TAB PO PRN ×3 (01:16→09:10)
[2017-02-13] MEDS: IBUPROFEN 600 MG TAB PO PRN ×2 (02:52→09:08)
--- NOTE | 2017-02-13 07:56 | OBGCSDC ---
General Delivery Information - General Info : 1 Para: 1 Delivery Physician/CNM: Nano Rucker [employer] Generator Repairer: Adelia Montenegro Labs: Patient ABO/Rh O POSITIVE 02/08/17 14:00 Hct 28.9 % (38.0-47.0) L 02/10/17 19:15 Vaginal - Diagnosis Amniotic Fluid Color: Clear - Delivery IUP (Weeks): 39 Number of Prior Sections: 0 Indications for Prior Section: Other (Specify) Indications for Current Section: Arrest of Descent Procedures: LTCS Intra-op Complications: None EBL: 800 Anesthesia: Epidural Discharge Information - Discharge Information Discharge Medications: Ibuprofen, Vitamins, Vicodin Condition: Good Instruction/Follow Up: Two Weeks Discharge Physician/CNM: Kera Pereira Discharge Date: 02/13/17 Dictated: No
[2017-02-13 08:08] VITALS: BP 122/80; PULSE 70; TEMP 98.2; O2SAT 94
[2017-02-13] MEDS: SENNOSIDES/DOCUSATE SODIUM TAB PO SCH (09:09)
[2017-02-13] MEDS: IRON POLYSAC/IRON HEME 28 MG TAB PO SCH (09:09)
== END 2017-02-13 15:31 | disposition home or self-care (01) | DRG 766 ==
LOC: FLD 12:40 → OBSVTOIN 12:40 → FOB 02-09 13:14
PROVIDERS: ADMIT Obstetrics & Gynecology; ATTEND Obstetrics & Gynecology
PROC: 10D00Z1 Extraction of Products of Conception, Low, Open Approach (ICD-10-PCS; principal; 2017-02-09)
DX: O42.013 Preterm premature rupture of membranes, onset of labor within 24 hours of rupture, third trimester (principal); O64.0XX0 Obstructed labor due to incomplete rotation of fetal head, not applicable or unspecified; O69.9XX0 Labor and delivery complicated by cord complication, unspecified, not applicable or unspecified; Z3A.36 36 weeks gestation of pregnancy; Z37.0 Single live birth
CPT/HCPCS: J0690; J1100; J1885; J2274; J2370; J2405; J2590; J3010; J3105

== ENCOUNTER → 2017-03-10 | Outpatient (CLI) | payer OTHER | LOC: FLACT 09:39 | PROVIDERS: ATTEND Obstetrics & Gynecology | DX: Z39.1 Encounter for care and examination of lactating mother (principal); R63.3 Feeding difficulties | CPT/HCPCS: G0463 ==

== ENCOUNTER → 2018-11-22 | Outpatient (CLI) | payer OTHER | LOC: BMCIMAGING 15:15 | PROVIDERS: ATTEND Internal Medicine | DX: M54.12 Radiculopathy, cervical region (principal); M50.30 Other cervical disc degeneration, unspecified cervical region ==